=== PATIENT | male | born 1955 | race Caucasian/White ===

== ENCOUNTER 2020-06-13 19:01 | Emergency (ER) | payer MEDICARE ==
[~2020-06-13] VITALS: Ht 182.9 cm; Wt 108.0 kg
[2020-06-13 19:14] VITALS: BP 150/92
--- NOTE | 2020-06-13 19:15 | PHYS DOC ---
General Adult EDM: Chief Complaint: LACERATION/AVULSION HPI: HPI: ".. I was cutting brush.. and got myself instead..." Patient is a 64 year old male who presents with above hx and chain saw injury to Lt. stein. Patient has approximately 6 cm laceration across his anterior stein on the left. The wound has ground and will wood particles, blue jeans, oil and abraded skin . Did not not appear to violate the periosteum of the bone. Distal neurovascular appear to be intact. Patient states injury occurred when he attempted to trim up to brush and it hit the metal frame of the trailer causing his change all the ricochet into his left stein. Pt. is diabetic. Unsure last tetanus. Normally follows with . Review of Systems: Review of Systems: Constitutional: Denies fever or chills Eyes: Denies change in visual acuity HENT: Denies nasal congestion or sore throat Respiratory: Denies cough or shortness of breath Cardiovascular: Denies chest pain or edema GI: Denies abdominal pain, nausea, vomiting, bloody stools or diarrhea : Denies dysuria Musculoskeletal: Denies back pain or joint pain. Complains of injury to left stein Integument: Denies rash Neurologic: Denies headache, focal weakness or sensory changes Endocrine: Denies polyuria or polydipsia Lymphatic: Denies swollen glands Psychiatric: Denies depression or anxiety Family History: Family History: Noncontributory to presentation Current Medications: Current Meds: See nursing for home meds Allergies: Allergies: Allergies Coded Allergies Type Severity Reaction Last Updated Verified Penicillins Allergy Unknown 06/13/20 Yes Physical Exam: PE: Constitutional: Moderate acute distress, non-toxic appearance. [] HENT: Normocephalic, atraumatic, bilateral external ears normal, oropharynx moist, no oral exudates, nose normal. [] Eyes: PERRLA, EOMI, conjunctiva normal, no discharge. [] Neck: Normal range of motion, no tenderness, supple, no stridor. [] Cardiovascular:Heart rate regular rhythm, no murmur [] Lungs & Thorax: Bilateral breath sounds equal apex auscultation [] Abdomen: Bowel sounds normal, soft, no tenderness, no masses, no pulsatile masses. Obese Skin: Warm, dry, no erythema, no rash. [] Back: No tenderness, no CVA tenderness. [] Extremities: No tenderness, no cyanosis, no clubbing, ROM intact, no edema. Injury to left stein as per HPI Neurologic: Alert and oriented X 3, normal motor function, normal sensory function, no focal deficits noted. [] Psychologic: Affect anxious, judgement normal, mood normal. [] EKG: EKG: [] Radiology/Procedures: Radiology/Procedures: [] Heart Score: C/O Chest Pain: N/A Risk Factors: Risk Factors: DM, Current or recent (<one month) smoker, HTN, HLP, family history of CAD, obesity. Risk Scores: Score 0 - 3: 2.5% MACE over next 6 weeks - Discharge Home Score 4 - 6: 20.3% MACE over next 6 weeks - Admit for Clinical Observation Score 7 - 10: 72.7% MACE over next 6 weeks - Early Invasive Strategies Course & Med Decision Making: Course & Med Decision Making Pertinent Labs and Imaging studies reviewed. (See chart for details) Wound care -procedure note-area laceration cleaned with peroxide and saline. Injected abrasion laceration site with 2% lidocaine. Re- irrigated laceration with normal saline. Use a surgical scrub brush and surgical soap to scrub wound.. Then use scissors to trim off abraded skin and embedded foreign bodies. Re-scrubbed with surgical scrub brush. Re irrigated with normal saline in range of motion. Applied Bactroban to wound. Dressing applied. May leave current dressing in place for 3 days if it does not become wet. If it ever becomes wet in the next 3 days must change dressing immediately. After removal of this dressing apply Polysporin 4 times a day. Monitor closely for infection. Take Bactrim DS twice a day for the next 7 days. Risk of Bactrim with a diabetic considered however allergic to penicillin and penicillin-like drugs. Feel this is a relatively short-term risk. Bactrim maybe more likely to cover bacteria that became embedded in the leg during the injury with chainsaw. Must monitor closely for signs of infection. Take Tylenol and ibuprofen for pain. Return if any concerns.. With loss of tissue do not feel suturing would be appropriate in this type of wound. Tetanus was updated. Impression; 1. Chainsaw injury to left stein 6cm 2. History of diabetes [] Dragon Disclaimer: Dragmarisol Disclaimer: This electronic medical record was generated, in whole or in part, using a voice recognition dictation system. Departure Departure: Referrals: JOSE NGUYEN DO (PCP) Scripts Sulfamethoxazole/Trimethoprim (BACTRIM DS TABLET) 1 Each Tablet 1 TAB PO BID for cellulitis for 7 Days, #14 TAB 0 Refills Prov: SARITA MURPHY MD 06/13/20 Zeke Disclaimer This chart was dictated in whole or in part using Voice Recognition software in a busy, high-work load, and often noisy Emergency Department environment. It may contain unintended and wholly unrecognized errors or omissions. SARITA MURPHY MD June 13, 2020 19:15
[2020-06-13] MEDS ORDERED: SMZ/TMP 800/160MG TABLET. PO ONE (19:30)
[2020-06-13] MEDS ORDERED: LIDOCAINE 2% 20 ML VIAL. IJ ONE (19:30)
[2020-06-13] MEDS ORDERED: BACITRACIN ZINC TOPICAL OINT PACKET. TP ONE (19:30)
[2020-06-13] MEDS ORDERED: DIPH,PERTUSS(ACELL),TET VAC/PF 0.5 ML SYRINGE. VAX IM ONE (19:30)
[2020-06-13] MEDS ORDERED: SULF1TAB24 PO (19:31)
== END 2020-06-13 20:08 | disposition home or self-care (01) ==
LOC: ER 19:01
DX: S81.812A Laceration without foreign body, left lower leg, initial encounter (principal); E11.9 Type 2 diabetes mellitus without complications; Z88.0 Allergy status to penicillin; W22.8XXA Striking against or struck by other objects, initial encounter; Y93.89 Activity, other specified; Y92.89 Other specified places as the place of occurrence of the external cause; Y99.8 Other external cause status
CPT/HCPCS: 12032; 90471; 90715; 99283; J2001